=== PATIENT | female | born 1975 | race Caucasian/White ===

== ENCOUNTER 2016-12-04 15:09 | Emergency (ER) | payer OTHER ==
--- NOTE | 2016-12-04 15:17 | PDOC ---
History of Present Illness - General Stated Complaint: VOMITING Time Seen by Provider: 12/04/16 15:17 - History of Present Illness Initial Comments: 41 year old female without PMH presenting with nausea, non-bilious/non-bloody vomiting, and diarrhea shortly after eating some chicken and rice at a potluck. Her son ate the same food and was also sick shortly after. Generally very weak but denies fevers, chills, chest pain, palpitations, cough, or other sick symptoms. Took some Mylanta with minor relief of symptoms. 12/04/16 18:16 Past History - Past Medical History Allergies/Adverse Reactions: Allergies Allergy/AdvReac Type Severity Reaction Status Date / Time naproxen Allergy Intermediate Verified 12/04/16 15:30 Home Medications: Ambulatory Orders NK [No Known Home Medication] 12/04/16 - Reproductive History (#): 5 Para: 5 - Suicide/Smoking/Psychosocial Hx Smoking History: Never smoked Have you smoked in the past 12 months: No Number of Cigarettes Smoked Daily: 0 Hx Alcohol Use: No Drug/Substance Use Hx: No Review of Systems - Review of Systems Constitutional: Yes: Weakness. No: Diaphoresis, Fever HEENTM: No: Blurred Vision Respiratory: No: Cough, Orthopnea Cardiac (ROS): No: Chest Pain, Edema ABD/GI: Yes: Diarrhea, Nausea, Vomiting : No: Burning, Dysuria Integumentary: No: Change in Color Neurological: No: Headache *Physical Exam - Physical Exam General Appearance: Yes: Nourished. No: Appropriately Dressed, Apparent Distress HEENT: positive: EOMI, FLASH, Normal ENT Inspection, Normal Voice Neck: positive: Trachea midline, Normal Thyroid, Supple. negative: Tender, Rigid Respiratory/Chest: positive: Lungs Clear, Normal Breath Sounds. negative: Chest Tender, Respiratory Distress, Accessory Muscle Use Cardiovascular: positive: Regular Rhythm, Regular Rate, S1, S2. negative: Edema , JVD, Murmur Gastrointestinal/Abdominal: positive: Normal Bowel Sounds, Tender (light epigastric tenderness), Flat. negative: Soft Musculoskeletal: positive: Normal Inspection Extremity: positive: Normal Capillary Refill, Normal Range of Motion Integumentary: positive: Normal Color, Dry, Warm Neurologic: positive: Fully Oriented, Alert, Normal Mood/Affect Medical Decision Making - Medical Decision Making 41 year old with gastroenteritis but VSS and symptoms remitting after 1 L NS, maalox, famotidine, and Zofran. Will DC home with return precautions. 12/04/16 18:25 *DC/Admit/Observation/Transfer Diagnosis at time of Disposition: Gastroenteritis due to toxin in food - Discharge Dispostion Disposition: HOME Condition at time of disposition: Improved Admit: No
[2016-12-04] MEDS ORDERED: LIDOCAINE VISCOUS 2% ORAL/TOP 20 ML UNIT-DOSE CUP MM ONE (15:26)
[2016-12-04] MEDS ORDERED: FAMOTIDINE 20 MG/50 ML IVPB 50 ML IVPB ONE ×2 (15:26→16:57)
[2016-12-04 15:57] VITALS: TEMP 97.6; BMI 33.5
[2016-12-04] MEDS ORDERED: ONDANSETRON 4 MG/2 ML VIAL IVPUSH ONE (16:08)
[2016-12-04] MEDS ORDERED: SODIUM CHLORIDE 0.9% 1000 ML INFUS.BAG IV ONE (16:08)
--- NOTE | 2016-12-04 16:18 | PDOC ---
Attending Attestation - Resident Resident Name: Roula Baxter - ED Attending Attestation I have performed the following: I have examined & evaluated the patient, The case was reviewed & discussed with the resident, I agree w/resident's findings & plan, Exceptions are as noted - HPI HPI: 12/04/16 16:25 41 yo female attending a gathering and ate a chicken dish as did her son. Within an hour of eating ,they both became sick with nausea and vomiting <Tiffani Sheppard - Last Filed: 12/04/16 16:25> - HPI HPI: 12/04/16 18:57 The patient is a 41 year old female, with no significant PMHx, who presents to the emergency department with nausea and vomiting since 12PM today s/p eating a chicken and bledsoe dish she brought to a birthday yesterday evening. She reports the food had been sitting out because she forgot to put the food away before they ate it later that evening. She reports two other family members who ate the same dish are also sick with similar symptoms. She denies chest pain, shortness of breath, headache and dizziness. She denies fever, chills, diarrhea and constipation. She denies dysuria, frequency, urgency and hematuria. Allergies: naproxen PCP - Dr. Jacobs - Physicial Exam PE: 12/04/16 18:57 GENERAL: Well-appearing, well-nourished. No apparent distress. HEENT: Normocephalic, atraumatic. PERRL, EOM intact. CARDIOVASCULAR: Normal S1, S2. Regular rate and rhythm. PULMONARY: Clear to auscultation bilaterally. ABDOMEN: Soft, non-distended, non-tender. EXTREMITIES: Normal ROM in all four extremities. No gross deformities. SKIN: Warm, dry. No rash NEUROLOGICAL: No focal neurological deficits. - Medical Decision Making 12/04/16 18:57 Documentation prepared by Katherine Cho, acting as medical writer for Tiffani Sheppard MD <Katherine Cho - Last Filed: 12/04/16 18:58>
[2016-12-04] MEDS ORDERED: ONDANSETRON 4 MG/2 ML VIAL ONE (16:57)
[2016-12-04] MEDS ORDERED: LIDOCAINE VISCOUS 2% ORAL/TOP 20 ML UNIT-DOSE CUP ONE (16:57)
[2016-12-04 19:14] VITALS: BP 110/64; PULSE 76
== END 2016-12-04 19:14 | disposition home or self-care (01) ==
LOC: JER 15:09
PROC: 3E033GC Introduction of Other Therapeutic Substance into Peripheral Vein, Percutaneous Approach (ICD-10-PCS; principal; 2016-12-04)
DX: A05.9 Bacterial foodborne intoxication, unspecified (principal)
CPT/HCPCS: 96365; 96375; 99282-25

== ENCOUNTER 2018-04-13 09:34 | Emergency (ER) | payer OTHER ==
[2018-04-13 09:41] VITALS: BP 119/65; PULSE 70; TEMP 98.6; BMI 33.8
--- NOTE | 2018-04-13 10:13 | PDOC ---
History of Present Illness - General Chief Complaint: Cold Symptoms Stated Complaint: HEADACHE Time Seen by Provider: 04/13/18 09:50 History Source: Patient Exam Limitations: No Limitations - History of Present Illness Initial Comments: 04/13/18 10:12 Patient here with complaints of frontal headache pain ethmoid sinus pain, and copious nasal drainage with intermittent fevers this past week. Has been using Sudafed and Tylenol with minimal resolved. States drainage from nose is thick green and feels is progressively worsening. Past History - Travel Traveled outside of the country in the last 30 days: No Close contact w/someone who was outside of country & ill: No - Past Medical History Allergies/Adverse Reactions: Allergies Allergy/AdvReac Type Severity Reaction Status Date / Time naproxen Allergy Intermediate Verified 04/13/18 09:38 Home Medications: Ambulatory Orders Amoxicillin - [Amoxicillin 875mg Tablet -] 875 mg PO BID #20 tab 04/13/18 Oseltamivir Phosphate [Tamiflu -] 75 mg PO BID #10 capsule 04/13/18 Phenylephrine HCl/Acetaminophn [Sudafed PE Pressure+Pain Cplt] 1 each PO ASDIR 04/13/18 COPD: No - Reproductive History (#): 5 Para: 5 - Suicide/Smoking/Psychosocial Hx Smoking History: Never smoked Have you smoked in the past 12 months: No Number of Cigarettes Smoked Daily: 0 Hx Alcohol Use: No Drug/Substance Use Hx: No Substance Use Type: None Review of Systems - Review of Systems Able to Perform ROS?: Yes Is the patient limited Yakut proficient: Yes Constitutional: Yes: Symptoms Reported, See HPI, Chills, Fever, Loss of Appetite , Malaise HEENTM: Yes: Symptoms Reported, See HPI, Eye Pain, Nose Pain, Nose Congestion Respiratory: Yes: See HPI. No: Symptoms reported, Cough Musculoskeletal: No: Symptoms Reported Neurological: Yes: Symptoms reported, See HPI, Headache All Other Systems: Reviewed and Negative *Physical Exam - Vital Signs Last Vital Signs Temp Pulse Resp BP Pulse Ox 98.6 F 70 16 119/65 97 04/13/18 09:40 04/13/18 09:40 04/13/18 09:40 04/13/18 09:40 04/13/18 09:40 - Physical Exam General Appearance: Yes: Nourished, Appropriately Dressed, Apparent Distress, Mild Distress, Moderate Distress HEENT: positive: FLASH, TMs Normal (congested but landmarks easily visualized), Rhinorrhea (thick white-yellow), Sinus Tenderness, TM Bulging Neck: positive: Supple, Lymphadenopathy (R), Lymphadenopathy (L). 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 NML intact, Fully Oriented, Alert, Normal Mood/ Affect, Normal Response Moderate Sedation - Procedure Monitoring Vital Signs: Procedure Monitoring Vital Signs Temperature 98.6 F 04/13/18 09:40 Pulse Rate 70 04/13/18 09:40 Respiratory Rate 16 04/13/18 09:40 Blood Pressure 119/65 04/13/18 09:40 O2 Sat by Pulse Oximetry (%) 97 04/13/18 09:40 Progress Note - Progress Note Progress Note: Sinusitis, will treat with amoxicillin *DC/Admit/Observation/Transfer Diagnosis at time of Disposition: Sinusitis Qualifiers: Sinusitis location: unspecified location Chronicity: acute Recurrence: non- recurrent Qualified Code(s): J01.90 - Acute sinusitis, unspecified - Discharge Dispostion Disposition: HOME Condition at time of disposition: Stable Decision to Admit order: No - Prescriptions Prescriptions: Amoxicillin - [Amoxicillin 875mg Tablet -] 875 mg PO BID #20 tab Oseltamivir Phosphate [Tamiflu -] 75 mg PO BID #10 capsule - Referrals Referrals: Tami Fitzgerald MD [Primary Care Provider] - - Patient Instructions Printed Discharge Instructions: DI for Sinus Headache Additional Instructions: Rest, drink lots of fluids: Teas, water, soups, Pedialyte Saltwater gargles Steamy showers/seem to face break up mucus Old-fashioned treatments help! Avoid contact with others until fevers and cough resolved as this is very contagious Lots of handwashing and good hygiene Continue [id number] medications for symptomatic relief Tylenol or Motrin for fever and pain Take all of Tamiflu as directed: 1 tab every 12 hours for 5 days Followup with private physician in one to 2 days as needed or if worsening Return to emergency department for worsened symptoms, fevers, dehydration Influenza takes between 5 and 7 days for resolution To not participate in any activity, work, or school until fevers and cough are gone for at least one day - Post Discharge Activity Forms/Work/School Notes: Back to Work
== END 2018-04-13 10:17 | disposition home or self-care (01) ==
LOC: JERFT 09:34
DX: J01.90 Acute sinusitis, unspecified (principal)
CPT/HCPCS: 99281-25

== ENCOUNTER 2020-10-15 16:34 | Emergency (ER) | payer OTHER ==
[2020-10-15 16:53] VITALS: TEMP 97.9; BMI 36.6
[2020-10-15 20:56] LABS: BASO % 0.4 % (0-2.0); EOS % 5.1 % (0-4.5); HEMATOCRIT 38.2 % (32.4-45.2); HEMOGLOBIN 13.2 GM/dL (10.7-15.3); LYMPH % 30.4 % (8-40); MCH 31.7 pg (25.7-33.7); MCHC 34.5 g/dl (32.0-36.0); MEAN CELL VOLUME 91.7 fl (80-96); MEAN PLT VOLUME 9.3 fl (7.5-11.1); MONO % 7.4 % (3.8-10.2); NEUT % 56.7 % (42.8-82.8); PLATELET COUNT 288 10^3/uL (134-434); RBC 4.16 M/mm3 (3.60-5.2); RDW 13.2 % (11.6-15.6); WHITE BLOOD COUNT 7.7 K/mm3 (4.0-10.0)
[2020-10-15 21:13] LABS: CHLORIDE 106 mmol/L (98-107); SODIUM 140 mmol/L (136-145)
[2020-10-15 21:16] LABS: ALBUMIN 3.5 g/dl (3.4-5.0); ANION GAP 9 MMOL/L (8-16); CALCIUM 8.9 mg/dL (8.5-10.1); CO2 25 mmol/L (21-32)
[2020-10-15 21:17] LABS: GLUCOSE,RANDOM 83 mg/dL (74-106)
[2020-10-15 21:19] LABS: CREATININE 0.8 mg/dL (0.55-1.3); SGOT/AST 17 U/L (15-37); SGPT/ALT 27 U/L (13-61)
[2020-10-15 21:21] LABS: BILIRUBIN,TOTAL 0.2 mg/dL (0.2-1); TOT PROT 6.9 g/dl (6.4-8.2)
[2020-10-15 21:22] LABS: ALK PHOS 96 U/L (45-117)
[2020-10-15 21:36] VITALS: BP 120/60; PULSE 63
== END 2020-10-15 21:43 | disposition home or self-care (01) ==
LOC: JER 16:34
DX: R07.89 Other chest pain (principal)
CPT/HCPCS: 36415; 80053; 82550; 84484; 85025; 93005; 93010; 99284-25

== ENCOUNTER 2022-09-19 02:48 | Emergency (ER) | payer OTHER ==
[2022-09-19 03:00] VITALS: BP 116/76; PULSE 75; RESP 18; TEMP 97.9; BMI 35.1
[2022-09-19] MEDS ORDERED: METOCLOPRAMIDE HCL INJECTION 10 MG/2 ML VIAL IVPUSH ONE (04:26)
[2022-09-19] MEDS ORDERED: SODIUM CHLORIDE 0.9% 500 ML INFUS.BAG IV ONE (04:26)
[2022-09-19] MEDS ORDERED: ACETAMINOPHEN INJECTION 100 ML IVPB ONE (04:33)
[2022-09-19] MEDS ORDERED: METOCLOPRAMIDE HCL INJECTION 10 MG/2 ML VIAL ONE (04:34)
[2022-09-19 06:08] LABS: EPI CELLS >36 /uL (0-25.1); HYALINE CASTS 0 /uL (0-3.1); PH,URINE 5.5 (5.0-8.0); URINE APPEARANCE CLEAR; URINE BACTERIA 6339 /uL (0-1359); URINE BILIRUBIN NEGATIVE (NEGATIVE); URINE COLOR YELLOW; URINE GLUCOSE (UA) NEGATIVE (NEGATIVE); URINE KETONE NEGATIVE (NEGATIVE); URINE LEUK ESTERASE 1+ (NEGATIVE); URINE NITRITE NEGATIVE (NEGATIVE); URINE PROTEIN NEGATIVE (NEGATIVE); URINE WBC 76 /uL (0-25.8)
[2022-09-19 06:21] LABS: HCG,QUALITATIVE URINE Negative
== END 2022-09-19 06:43 | disposition home or self-care (01) ==
LOC: JER 02:48
PROC: 3E033NZ Introduction of Analgesics, Hypnotics, Sedatives into Peripheral Vein, Percutaneous Approach (ICD-10-PCS; principal; 2022-09-19)
PROC: 3E033GC Introduction of Other Therapeutic Substance into Peripheral Vein, Percutaneous Approach (ICD-10-PCS; 2022-09-19)
PROC: 3E033GC Introduction of Other Therapeutic Substance into Peripheral Vein, Percutaneous Approach (ICD-10-PCS; 2022-09-19)
DX: R51.9 Headache, unspecified (principal); N39.0 Urinary tract infection, site not specified
CPT/HCPCS: 81003; 84703; 87086; 87186; 99284-25